=== PATIENT | male | born 1995 | race Caucasian/White ===

== ENCOUNTER 2021-11-29 09:37 | Emergency (ER) | payer OTHER ==
[~2021-11-29] VITALS: Ht 188 cm; Wt 133.8 kg
[2021-11-29 09:41] VITALS: BP 135/68
[2021-11-29 09:53] LABS: BILIRUBIN,URINE NEGATIVE (NEGATIVE); UROBILINOGEN,URINE 0.2 E.U./dL (0.2)
[2021-11-29 10:02] LABS: BASOPHIL % 0.6 % (0.0-0.2); EOSINOPHIL # 0.1 10^3/uL (0.0-0.2); LYMPHOCYTES # 1.21 10^3/uL1 (1.0-4.8); LYMPHOCYTES % 16.9 % (24.0-44.0); MONOCYTES # 0.6 10^3/uL (0.3-0.8); MONOCYTES % 7.8 % (5.0-12.0); NEUTROPHIL # 5.3 10^3/uL (1.8-7.7); NEUTROPHILS % 73.7 % (41.0-85.0); PLATELET COUNT 195 10^3/uL (150-400); RED CELL DISTRIBUTION WIDTH 12.2 % (11.5-14.5)
[2021-11-29] MEDS ORDERED: MORPHINE SULFATE IV STA (10:02)
[2021-11-29] MEDS ORDERED: ZOFRAN IV STA (10:02)
--- NOTE | 2021-11-29 10:02 | ER.PDOC ---
General Chief Complaint: Requesting Medical Care Stated Complaint: BACK PAIN Time seen by MD: 09:59 Source: patient Exam Limitations: no limitations History of Present Illness Initial Comments 26-year-old male presenting with left flank pain radiating into his testicles that began after an incident with his child. Patient states that he was trying to wrangle it when he fell back thinking he landed on a rock on his left flank. States the pain is 10 out of 10 radiating down into his inguinal area. Has nausea, vomiting, loose stools. Denies any hematuria, no melena or bright red blood per rectum. Has had some nausea, vomiting and pain worsens with movement, palpation and eating. Patient also informs that he had fallen off a horse 1 month ago and had a significant bruise and swelling to the area on that same side. Patient did not see anyone for that injury. Severity/Quality: severe Radiation: flank Associated Symptoms: nausea/vomiting Exacerbated by: movements Allergies: Coded Allergies: No Known Allergies (Unverified , 11/29/21) Vital Signs First Vital Signs Date Time Temp Pulse Resp B/P (MAP) Pulse Ox O2 Delivery O2 Flow Rate FiO2 11/29/21 09:41 97.8 83 18 135/68 (90) 98 Room Air Last Vital Signs Date Time Temp Pulse Resp B/P (MAP) Pulse Ox O2 Delivery O2 Flow Rate FiO2 11/29/21 09:41 97.8 83 18 11/29/21 09:41 98 11/29/21 09:41 135/68 (90) Room Air Past Medical History Surgical History: no surgical history Social History Drug Use: none Gastrointestinal: abdominal pain, diarrhea, nausea, vomiting All Other Systems: Reviewed and Negative Physical Exam General Appearance: No Apparent Distress, WD/WN HEENT: PERRL/EOMI, Normal ENT Inspection, TMs Normal, Pharynx Normal Neck: Non-Tender, Full Range of Motion, Supple, Normal Inspection Respiratory: chest non-tender, lungs clear, normal breath sounds, no respiratory distress, no accessory muscle use Cardiovascular: Normal Peripheral Pulses, Regular Rate, Rhythm, No Edema, No Gallop, No JVD, No Murmur Gastrointestinal: Normal Bowel Sounds, Soft Pelvic: No Masses Back: Normal Inspection, CVA Tenderness (L) Extremities: Normal Range of Motion, Non-Tender, Normal Inspection, No Pedal Edema, No Calf Tenderness, Normal Capillary Refill, Pelvis Stable Neurologic/Psychiatric: [employer] II-XII NML as Tested, No Motor/Sensory Deficits, Alert, Normal Mood/Affect, Oriented x 3 Skin: Warm/Dry, Ecchymosis (to the left flank ) Lymphatic: No Adenopathy Results/Orders Results/Orders Orders - EJESIEME,TRAVIS C DO Urinalysis (11/29/21 09:43) Cbc With Auto Diff (11/29/21 09:53) Comprehensive Metabolic Panel (11/29/21 09:53) Lipase (11/29/21 09:53) Ct Abd/Pel With Iv Contrast (11/29/21 09:53) Saline Lock (11/29/21 09:53) Lactic Acid(Ml) (11/29/21 09:53) Morphine Sulfate (Morphine Sulfate) (11/29/21 10:02) Ondansetron Hcl/Pf (Zofran) (11/29/21 10:02) Vital Signs Date Time Temp Pulse Resp B/P (MAP) Pulse Ox O2 Delivery O2 Flow Rate FiO2 11/29/21 09:41 97.8 83 18 11/29/21 09:41 97.8 83 18 98 11/29/21 09:41 97.8 83 18 135/68 (90) 98 Room Air Administered Medications Medications (Trade) Dose Ordered Sig/Raul Route PRN Reason Start Time Stop Time Status Last Admin Dose Admin Morphine Sulfate (Morphine Sulfate) 4 mg STAT STAT IV 11/29/21 10:02 11/29/21 10:04 DC 11/29/21 10:08 4 MG Ondansetron HCl (Zofran) 4 mg OT STAT IV 11/29/21 10:02 11/29/21 10:04 DC 11/29/21 10:08 4 MG Laboratory Tests Test 11/29/21 09:30 11/29/21 09:55 11/29/21 10:08 Urine Collection Type RANDOM Urine Color YELLOW Urine Appearance CLEAR Urine Bilirubin NEGATIVE (NEGATIVE) Urine Ketones NEGATIVE (NEGATIVE) Urine Specific [place] 1.025 (1.005-1.030) Urine pH 5.5 (4.5-8.0) Urine Protein NEGATIVE (NEGATIVE) Urine Urobilinogen 0.2 E.U./dL (0.2) Urine Nitrate NEGATIVE (NEGATIVE) Urine Leukocyte Esterase NEGATIVE (NEGATIVE) Urine Glucose (Auto)(UA) NEGATIVE (NEGATIVE) Urine Blood NEGATIVE (NEGATIVE) White Blood Count 7.2 10^3/uL (4.5-11.0) Red Blood Count 4.61 10^6/uL (4.50-5.90) Hemoglobin 14.3 g/dL (13.9-16.3) Hematocrit 41.7 % (37.0-53.0) Mean Corpuscular Volume 90.5 fL (78-100) Mean Corpuscular Hemoglobin 31.0 pg (26-34) Mean Corpuscular Hemoglobin Concent 34.3 g/dL (33-36.5) Red Cell Distribution Width 12.2 % (11.5-14.5) Platelet Count 195 10^3/uL (150-400) Mean Platelet Volume 10.6 fL (7.8-11.0) Neutrophils (%) (Auto) 73.7 % (41.0-85.0) Lymphocytes (%) (Auto) 16.9 % (24.0-44.0) L Monocytes (%) (Auto) 7.8 % (5.0-12.0) Neutrophils # (Auto) 5.3 10^3/uL (1.8-7.7) Lymphocytes # (Auto) 1.21 10^3/uL1 (1.0-4.8) Monocytes # (Auto) 0.6 10^3/uL (0.3-0.8) Absolute Immature Granulocyte (auto 0 10^3 u/L (0-2) Absolute Eosinophils (auto) 0.1 10^3/uL (0.0-0.2) Immature Granulocytes % 0.00 % (0.00-0.50) Eosinophils % 1.0 % (0.0-5.0) Basophils % 0.6 % (0.0-0.2) H Basophils # 0.0 10^3/uL (0.0-0.1) Sodium Level 136 mmol/L (132-145) Potassium Level 4.0 mmol/L (3.6-5.2) Chloride Level 105.0 mmol/L (96-109) Carbon Dioxide Level 23.8 mmol/L (20.0-32) Anion Gap 11.2 Blood Urea Nitrogen 11 mg/dL (7-18) Creatinine 1.08 mg/dL (0.59-1.40) Estimated GFR () 100.8 (>/=60) Est GFR (CKD-EPI)(Non-Afr [place]) 83.3 (>/=60) BUN/Creatinine Ratio 10.0 Glucose Level 107 mg/dL (70-110) Calcium Level 9.2 mg/dL (8.4-10.5) Total Bilirubin 0.7 mg/dL (0.2-1.0) Aspartate Amino Transferase (AST) 19 U/L (0-35) Alanine Aminotransferase (ALT) 28 U/L (12-78) Alkaline Phosphatase 52 U/L (50-136) Total Protein 7.5 g/dL (6.4-8.2) Albumin 3.6 g/dL (3.4-5.0) Globulin 3.9 Albumin/Globulin Ratio 0.923 Lipase 100 U/L (114-286) L Lactic Acid Level 0.4 mmol/L (0.5-1.9) L Progress Progress 26-year-old male presenting with left flank pain after contusion and fall from horse back. Here today patient's vital signs are stable, no fever, no leukocytosis, H&H stable, no hematuria, no leukorrhea. CT shows a hematoma to the flank. No active extract. Inflammatory changes to bowel and given patient's nausea, vomiting and pain we will give him some pain medication for home and prophylactic antibiotics. Discussed with Dr. Toribio with general surgery though she is not on-call she recommends to look for signs of infection have the patient monitor closely and follow-up with his primary care doctor for reassessment of the area frequently. Strict ED return precautions given. Patient voiced understanding and agrees with plan. ER DEPART Departure Time of Disposition: 11:25 Disposition: 01 HOME / SELF CARE / HOMELESS Impression: Primary Impression: Hematoma of abdominal wall Condition: Stable Patient Instructions: Flank Pain, [id number], Hematoma, [id number] Referrals: PCP,UNKNOWN (PCP) PRIMARY CARE PROVIDER ARLEY SANTANA MD,DOMINICK Ovalles MD Additional Instructions: Please watch for infection to the area. Take all the antibiotics as prescribed. Follow-up with your primary care doctor for close monitoring. Return to ED for any new or worsening symptoms. Duration or Time Spent with Pa: 35 min TRAVIS VARGAS DO Nov 29, 2021 10:02
[2021-11-29] MEDS ORDERED: ZOFRAN ONE (10:06)
[2021-11-29] MEDS ORDERED: MORPHINE SULFATE ONE (10:06)
[2021-11-29 10:16] LABS: CARBON DIOXIDE 23.8 mmol/L (20.0-32)
--- NOTE | 2021-11-29 11:04 | DIREP ---
PROCEDURE:CT ABDOMEN/PELVIS W/ CONTRAST COMPARISON:None. INDICATIONS:abd pain, KICKED BY HORSE X 1 WK TECHNIQUE:Axial images were created through the abdomen and pelvis with non-ionic intravenous contrast material. No oral contrast was administered. Sagittal and coronal reconstructions were performed from source images. FINDINGS: LUNG BASES:Normal. No visible pulmonary or pleural disease. LIVER:Normal. No significant liver lesions are identified. BILIARY:Normal. No visible dilatation or calcification. PANCREAS:Normal. No lesion, fluid collection, ductal dilatation, or atrophy. SPLEEN:The spleen is enlarged measuring 15 cm in length. ADRENALS:Normal. No mass or enlargement. URINARY TRACT:Normal. No focal lesions or hydronephrosis. AORTA/VASCULAR:Normal. No aneurysm. RETROPERITONEUM:Normal. No mass or adenopathy. BOWEL/MESENTERY:Bowel wall thickening versus incomplete distention is seen of the right colon and cecum. No dilated loops of large or small bowel are seen. The appendix is normal. No free fluid is seen. ABDOMINAL WALL:Edematous changes are seen in the subcutaneous tissues of the left flank. A localized hematoma is partially visualized in the left flank measuring approximately 6.4 cm in length. PELVIC ORGANS:Normal. No visible mass. Pelvic organs appropriate for patient age. BONES:No fracture is demonstrated. Mild anterior wedging is seen of multiple lower thoracic vertebral bodies. OTHER:Negative. CONCLUSION: 1. Edematous changes are seen in the subcutaneous tissues of the left flank. A localized hematoma is partially visualized in the left flank measuring approximately 6.4 cm in length. 2. Nonspecific findings of bowel wall thickening versus incomplete distention of the right colon and cecum which can be correlated clinically for an infectious and/or inflammatory colitis. 3. Mild splenomegaly. Dictated by: Benny Valentine M.D. On 11/29/2021 at 10:55 AM
== END 2021-11-29 11:48 | disposition home or self-care (01) ==
LOC: ER 09:37
DX: S30.1XXA Contusion of abdominal wall, initial encounter (principal); W19.XXXA Unspecified fall, initial encounter; Y93.89 Activity, other specified; Y92.89 Other specified places as the place of occurrence of the external cause; Y99.8 Other external cause status
CPT/HCPCS: 36415; 74177; 80053; 81003; 83605; 83690; 85025; 96374; 96375; 99285; J2405; Q9965

== ENCOUNTER 2022-03-15 16:02 | Emergency (ER) | payer SELFPAY ==
[~2022-03-15] VITALS: Ht 188 cm; Wt 135.2 kg
--- NOTE | 2022-03-15 16:14 | NUR ---
ARRIVAL PT ARRIVED AMBULATORY TO ED 7 WITH C/O A HEADACHE AND BODY ACHE FOR 3 DAYS. VITALS TAKN AND NOTIFIED.
[2022-03-15 16:16] VITALS: BP 119/62
--- NOTE | 2022-03-15 16:50 | ER.PDOC ---
General Chief Complaint: Headache Stated Complaint: HEADACHE,ACHES Time seen by MD: 16:48 Source: patient Exam Limitations: no limitations History of Present Illness Initial Comments Cough, congestion, body aches and headache for 3 to 4 days. No fever or chills. Timing/Duration: gradual Severity: moderate Associated Symptoms: runny nose, cough Allergies: Coded Allergies: No Known Allergies (Unverified , 11/29/21) Constitutional: no symptoms reported EENTM: see HPI Respiratory: see HPI Cardiovascular: no symptoms reported Gastrointestinal: no symptoms reported All Other Systems: Reviewed and Negative Past Medical History Medical History: no pertinent history Surgical History: no surgical history Family History Significant Family History: no pertinent family hx Social History Smoking: non-smoker Alcohol Use: occassionally Drug Use: none Physical Exam General Appearance: alert, no distress Eye: eyes nml inspection, lids & conjunct. nml, PERRL, no nystagmus Nose: nose nml Throat: pharynx nml, airway nml Neck: nml inspection, supple Respiratory: no resp.distress, breath sounds nml Abdomen: non-tender, no organomegaly CVS: reg rate & rhythm, heart sounds nml Skin: color nml, no rash, warm/dry Extremities: non-tender, nml ROM, no pedal edema NEURO/PSYCH: oriented x 3, CN's nml as tested, motor nml, sensation nml, mood/affect nml Results/Orders Results/Orders Orders - KENNY FROST MD Covid19 Antigen Laura Betsy (03/15/22 16:17) Influenza A&B (03/15/22 16:17) Vital Signs Date Time Temp Pulse Resp B/P (MAP) Pulse Ox O2 Delivery O2 Flow Rate FiO2 03/15/22 16:16 99.2 87 18 95 03/15/22 16:16 99.2 87 18 119/62 (81) 95 Room Air* 0 21 03/15/22 16:16 99.2 87 18 Laboratory Tests Test 03/15/22 16:10 Influenza Type A Antigen NEGATIVE (NEG) Influenza Type B Antigen NEGATIVE (NEG) SARS-CoV-2 Antigen (Rapid) NEGATIVE (NEGATIVE) Progress Progress Patient is negative for flu and COVID. ER DEPART Departure Time of Disposition: 16:49 Disposition: 01 HOME / SELF CARE / HOMELESS Impression: Primary Impression: Viral upper respiratory tract infection with cough Condition: Stable Referrals: PCP,UNKNOWN (PCP) PRIMARY CARE PROVIDER Additional Instructions: Tylenol Mucinex DM [id number] as directed Follow-up with your PCP 1 week Return to ED if worsening symptoms or concerns Duration or Time Spent with Pa: 10 min KENNY FROST MD Mar 15, 2022 16:50
== END 2022-03-15 16:54 | disposition home or self-care (01) ==
LOC: ER 16:02
DX: J06.9 Acute upper respiratory infection, unspecified (principal); Z20.822 Contact with and (suspected) exposure to COVID-19; F10.20 Alcohol dependence, uncomplicated; R52 Pain, unspecified
CPT/HCPCS: 87426; 87804; 99283

== ENCOUNTER 2022-06-03 17:57 | Emergency (ER) | payer SELFPAY ==
[~2022-06-03] VITALS: Ht 188 cm; Wt 133.8 kg
[~2022-06-03 17:57] MED LIST: TORADOL ONE
[2022-06-03 19:20] VITALS: BP 154/80
--- NOTE | 2022-06-03 19:26 | DIREP ---
PROCEDURE:XRAY ANKLE MIN 3VWS-RT COMPARISON:[facility], CR, XRAY FOOT MIN 3 VWS-RT, 05/03/2019, 01:11 PM. [facility], CR, XRAY FOOT MIN 3 VWS-RT, 06/03/2022, 06:55 PM. [facility], CR, XRAY ANKLE MIN 3VWS-RT, 04/19/2018, 02:46 PM. INDICATIONS:pain FINDINGS: BONES:No fracture. Stable small posterior calcaneal spur. JOINTS:Normal. No dislocation. The ankle mortise is symmetric SOFT TISSUES:No localized soft tissue swelling. OTHER:No additional findings. CONCLUSION: 1. No acute abnormality involving the right ankle. 2. Small posterior calcaneal spur. Dictated by: Mina Cao MD on 06/03/2022 at 07:23 PM
--- NOTE | 2022-06-03 19:28 | DIREP ---
PROCEDURE:XRAY FOOT MIN 3 VWS-RT COMPARISON:[facility], CR, XRAY ANKLE MIN 3VWS-RT, 06/03/2022, 06:[address] [facility], CR, XRAY ANKLE MIN 3VWS-RT, 04/19/2018, 02:46 PM. [facility], CR, XRAY FOOT MIN 3 VWS-RT, 05/03/2019, 01:11 PM. INDICATIONS:pain FINDINGS: BONES:No fracture. Stable small posterior calcaneal spur. JOINTS:Normal. No dislocation. LisFranc alignment is normal. SOFT TISSUES:Normal. OTHER:No additional findings. CONCLUSION: 1. No acute abnormality involving the right foot. 2. Stable small posterior calcaneal spur. Dictated by: Mina Cao MD on 06/03/2022 at 07:25 PM
[2022-06-03] MEDS ORDERED: TORADOL IM STA (19:41)
--- NOTE | 2022-06-03 19:46 | ER.PDOC ---
General Chief Complaint: Extremities Stated Complaint: RIGHT FOOT INJURY Time seen by MD: 19:43 Source: patient Exam Limitations: no limitations History of Present Illness Initial Comments Right foot and ankle pain for 4 days. Patient twisted it. Where: home Severity: moderate Context: twist Modifying Factors: pain on movement Allergies: Coded Allergies: No Known Allergies (Unverified , 11/29/21) Past Medical History Medical History: no pertinent history Surgical History: no surgical history Family History Significant Family History: no pertinent family hx Social History Smoking: non-smoker, greater than 1 pack/day Alcohol Use: occassionally Drug Use: none Review of Systems Constitutional: no symptoms reported EENTM: no symptoms reported Respiratory: no symptoms reported Cardiovascular: no symptoms reported Musculoskeletal: see HPI All Other Systems: Reviewed and Negative Physical Exam General Appearance: Alert, No Apparent Distress Foot: tenderness (Right foot without swelling or deformity) Ankle: tenderness (Right ankle without swelling or deformity) Gait: normal Neuro: sensation nml, motor nml Vascular: no vascular compromise Tendons: tendon function nml Leg/Knee/Thigh: uninjured above ankle Skin: warm/dry Head/ENT: nml inspection, pharynx nml Neck/Back: nml inspection, non-tender Resp/CVS: no resp distress Abdomen: non-tender, no organomegaly Results/Orders Results/Orders Orders - KENNY FROST MD Xr Foot Rt (06/03/22 18:43) Xr Ankle 3v Rt (06/03/22 18:43) Ketorolac Tromethamine (Toradol) (06/03/22 19:41) Vital Signs Date Time Temp Pulse Resp B/P (MAP) Pulse Ox O2 Delivery O2 Flow Rate FiO2 06/03/22 19:20 98.4 76 18 100 06/03/22 19:20 98.4 76 18 100 Room Air* 0 21 Progress Progress X-rays of right foot and ankle showed no acute bony abnormality He received a Toradol shot with improvement in pain. ER DEPART Departure Time of Disposition: 19:44 Disposition: 01 HOME / SELF CARE / HOMELESS Impression: Primary Impression: Injury of foot, right Additional Impression: Right ankle injury Condition: Improved Referrals: PCP,UNKNOWN (PCP) PRIMARY CARE PROVIDER Additional Instructions: Indomethacin Follow-up with your PCP next week Return to ED if worsening pain or concerns Duration or Time Spent with Pa: 10 min Problem Qualifiers Primary Impression: Injury of foot, right Encounter type: initial encounter Qualified Codes: S99.921A - Unspecified injury of right foot, initial encounter Additional Impression: Right ankle injury Encounter type: initial encounter Qualified Codes: S99.911A - Unspecified injury of right ankle, initial encounter KENNY FROST MD Jun 03, 2022 19:46
== END 2022-06-03 19:50 | disposition home or self-care (01) ==
LOC: ER 17:57
DX: S99.921A Unspecified injury of right foot, initial encounter (principal); S99.911A Unspecified injury of right ankle, initial encounter; F10.20 Alcohol dependence, uncomplicated; X50.1XXA Overexertion from prolonged static or awkward postures, initial encounter; Y93.89 Activity, other specified; Y92.009 Unspecified place in unspecified non-institutional (private) residence as the place of occurrence of the external cause; Y99.8 Other external cause status
CPT/HCPCS: 99284; 96372; 73610; 73630; J1885